=== PATIENT | female | born 1965 | race African-American/Black ===

== ENCOUNTER 2017-02-23 05:34 | Emergency (ER) | payer OTHER ==
[~2017-02-23] VITALS: Ht 167.6 cm; Wt 72.5 kg
[~2017-02-23 05:34] MED LIST: LEVO125T11 PO
[2017-02-23] MEDS ORDERED: SIMV40 PO (05:55)
[2017-02-23] MEDS ORDERED: SIMV20 PO (05:55)
[2017-02-23] MEDS ORDERED: PROPARACAINE HCL 0.5% 15 ML OPHTHALMIC SOLUTION OS ONE (06:30)
[2017-02-23 06:47] VITALS: BP 130/80
== END 2017-02-23 07:04 | disposition home or self-care (01) ==
LOC: EMS 05:34
DX: H57.12 Ocular pain, left eye (principal); E78.00 Pure hypercholesterolemia, unspecified; I34.1 Nonrheumatic mitral (valve) prolapse; Z88.0 Allergy status to penicillin; Z88.1 Allergy status to other antibiotic agents
CPT/HCPCS: 99282; 99283

== ENCOUNTER 2018-01-07 03:28 | Emergency (ER) | payer OTHER ==
[~2018-01-07] VITALS: Ht 167.6 cm; Wt 71.8 kg
[~2018-01-07 03:28] MED LIST changes: +SIMV-261 PO
[2018-01-07] MEDS ORDERED: ASPIRIN 81 MG CHEWABLE TABLET PO ONE (04:45)
[2018-01-07 04:59] LABS: EOSINOPHILS % (AUTO) 2.9 % (1.0-6.0); HEMATOCRIT 35.6 % (36-46); HEMOGLOBIN 11.7 g/dL (12.0-16.0); LYMPHOCYTES # (AUTO) 2.4 K/uL (1.0-4.8); LYMPHOCYTES % (AUTO) 36.6 % (22.0-44.0); MEAN CORPUSCULAR HEMOGLOBIN 24.8 pg (26.0-34.0); MEAN CORPUSCULAR HGB CONC 32.9 G/dL (31.0-37.0); MEAN CORPUSCULAR VOLUME 75 fL (80-100); MONOCYTES # (AUTO) 0.4 K/uL (0.1-1.0); MONOCYTES % (AUTO) 6.6 % (2.0-9.0); NEUTROPHILS # (AUTO) 3.5 K/uL (1.8-7.7); NEUTROPHILS % (AUTO) 52.9 % (40.0-70.0); PLATELET COUNT (AUTO) 237 K/uL (150-450); RED BLOOD CELL COUNT(AUTO) 4.73 MIL/uL (4.00-5.20)
[2018-01-07 05:09] LABS: ANION GAP 8 mmol/L (8-16); CALCIUM, TOTAL 9.1 mg/dL (8.8-10.5); CARBON DIOXIDE 26 mmol/L (22-29); CHLORIDE 105 mmol/L (98-107); CREATININE 0.96 mg/dL (0.60-1.30); GLOMERULAR FILTR. RATE CALC > 60 mL/min (>60); GLUCOSE,RANDOM 82 mg/dL (70-110); POTASSIUM 3.5 mmol/L (3.5-5.1); SODIUM SERUM 139 mmol/L (136-145); UREA NITROGEN, BLOOD 13 mg/dL (7-18)
[2018-01-07 05:12] LABS: B-TYPE NATRIURETIC PEPTIDE 8 pg/mL (0-100)
[2018-01-07 05:34] LABS: ALANINE AMINOTRANSFERASE 25 U/L (12-78); ALBUMIN 3.7 g/dL (3.4-5.0); ALKALINE PHOSPHATASE 59 U/L (46-116); ASPARTATE AMINOTRANSFERASE 20 U/L (15-37); BILIRUBIN,TOTAL 0.3 mg/dL (0.1-1.0); CREATINE KINASE MB 0.7 ng/mL (0-5); CREATINE KINASE, TOTAL 167 U/L (26-192); TOTAL PROTEIN, SERUM 7.5 g/dL (6.4-8.2)
[2018-01-07 08:35] VITALS: BP 136/80
== END 2018-01-07 08:42 | disposition home or self-care (01) ==
LOC: EMS 03:28
DX: R07.89 Other chest pain (principal); R10.13 Epigastric pain; F41.9 Anxiety disorder, unspecified; F17.210 Nicotine dependence, cigarettes, uncomplicated; E78.00 Pure hypercholesterolemia, unspecified; Z87.442 Personal history of urinary calculi; Z88.5 Allergy status to narcotic agent; Z88.0 Allergy status to penicillin
CPT/HCPCS: 93005; 99285

== ENCOUNTER 2019-06-06 06:15 | Emergency (ER) | payer OTHER ==
[~2019-06-06] VITALS: Ht 167.6 cm; Wt 71.8 kg
[~2019-06-06 06:15] MED LIST changes: -SIMV-261 PO
[2019-06-06 07:33] LABS: BASOPHILS % (AUTO) 1.3 % (0.0-2.0); EOSINOPHILS % (AUTO) 7.4 % (1.0-6.0); HEMATOCRIT 36.4 % (36-46); HEMOGLOBIN 11.5 g/dL (12.0-16.0); LYMPHOCYTES # (AUTO) 2.3 K/uL (1.0-4.8); LYMPHOCYTES % (AUTO) 48.7 % (22.0-44.0); MEAN CORPUSCULAR HEMOGLOBIN 24.6 pg (26.0-34.0); MEAN CORPUSCULAR HGB CONC 31.5 G/dL (31.0-37.0); MEAN CORPUSCULAR VOLUME 78 fL (80-100); MONOCYTES # (AUTO) 0.3 K/uL (0.1-1.0); MONOCYTES % (AUTO) 6.6 % (2.0-9.0); NEUTROPHILS # (AUTO) 1.7 K/uL (1.8-7.7); PLATELET COUNT (AUTO) 224 K/uL (150-450); RED BLOOD CELL COUNT(AUTO) 4.66 MIL/uL (4.00-5.20); RED CELL DISTRIBUTION WIDTH 14.7 % (11.5-14.5)
[2019-06-06 07:43] LABS: ANION GAP 9 mmol/L (8-16); CALCIUM, TOTAL 9.1 mg/dL (8.8-10.5); CARBON DIOXIDE 26 mmol/L (22-29); CHLORIDE 105 mmol/L (98-107); CREATININE 1.01 mg/dL (0.60-1.30); GLOMERULAR FILTR. RATE CALC > 60 mL/min (>60); GLUCOSE,RANDOM 91 mg/dL (70-110); POTASSIUM 3.6 mmol/L (3.5-5.1); SODIUM SERUM 140 mmol/L (136-145); UREA NITROGEN, BLOOD 10 mg/dL (7-18)
[2019-06-06] MEDS ORDERED: ONDANSETRON HCL 4 MG/2 ML VIAL IVP ONE (07:45)
[2019-06-06] MEDS ORDERED: MECLIZINE HCL 25 MG TABLET PO ONE (07:45)
[2019-06-06] MEDS ORDERED: ACETAMINOPHEN 500 MG TABLET PO ONE (07:45)
[2019-06-06 07:49] LABS: ALANINE AMINOTRANSFERASE 19 U/L (12-78); ALBUMIN 3.9 g/dL (3.4-5.0); ALKALINE PHOSPHATASE 58 U/L (46-116); ASPARTATE AMINOTRANSFERASE 18 U/L (15-37); BILIRUBIN,TOTAL 0.4 mg/dL (0.1-1.0); LIPASE 77 U/L (73-393); TOTAL PROTEIN, SERUM 7.4 g/dL (6.4-8.2)
[2019-06-06] MEDS ORDERED: ONDANSETRON HCL 4 MG TABLET PO ONE (08:15)
[2019-06-06 09:50] VITALS: BP 137/79
== END 2019-06-06 10:02 | disposition home or self-care (01) ==
LOC: EMS 06:17
DX: R42 Dizziness and giddiness (principal); R11.0 Nausea; E78.00 Pure hypercholesterolemia, unspecified; F17.210 Nicotine dependence, cigarettes, uncomplicated; Z98.890 Other specified postprocedural states; Z98.51 Tubal ligation status; Z79.899 Other long term (current) drug therapy; Z88.0 Allergy status to penicillin; Z88.1 Allergy status to other antibiotic agents
CPT/HCPCS: 36415; 70450; 80053; 83690; 84484; 85025; 93005; 99285; 99406; J2405

== ENCOUNTER 2019-07-22 06:43 | Emergency (ER) | payer OTHER ==
[~2019-07-22] VITALS: Ht 167.6 cm; Wt 71.8 kg
[2019-07-22] MEDS ORDERED: IBUPROFEN 600 MG TABLET PO ONE (09:15)
[2019-07-22 10:15] VITALS: BP 136/89
== END 2019-07-22 10:25 | disposition home or self-care (01) ==
LOC: EMS 06:44
DX: S39.011A Strain of muscle, fascia and tendon of abdomen, initial encounter (principal); E78.00 Pure hypercholesterolemia, unspecified; F17.210 Nicotine dependence, cigarettes, uncomplicated; Z88.0 Allergy status to penicillin; Z88.1 Allergy status to other antibiotic agents; X50.9XXA Other and unspecified overexertion or strenuous movements or postures, initial encounter; Y93.89 Activity, other specified; Y92.89 Other specified places as the place of occurrence of the external cause; Y99.8 Other external cause status
CPT/HCPCS: 73503

== ENCOUNTER 2019-11-18 06:58 | Emergency (ER) | payer OTHER ==
[~2019-11-18] VITALS: Ht 167.6 cm; Wt 71.8 kg
[2019-11-18] MEDS ORDERED: KETOROLAC TROMETHAMINE 30 MG/ML VIAL IM ONE (08:30)
[2019-11-18] MEDS ORDERED: IBUPROFEN 800 MG TABLET PO ONE (08:45)
[2019-11-18 09:35] VITALS: BP 146/84
== END 2019-11-18 09:42 | disposition home or self-care (01) ==
LOC: EMS 06:58
DX: M54.32 Sciatica, left side (principal); M13.88 Other specified arthritis, other site; E78.00 Pure hypercholesterolemia, unspecified; F17.210 Nicotine dependence, cigarettes, uncomplicated; Z98.890 Other specified postprocedural states; Z98.51 Tubal ligation status; Z88.0 Allergy status to penicillin; Z88.1 Allergy status to other antibiotic agents
CPT/HCPCS: 72100; J1885

== ENCOUNTER 2020-06-15 22:37 | Emergency (ER) | payer SELFPAY ==
[~2020-06-15] VITALS: Ht 167.6 cm; Wt 71.8 kg
[2020-06-15] MEDS ORDERED: SIMV-260 PO (22:58)
[2020-06-15] MEDS ORDERED: LIDOCAINE 5% TRANSDERMAL PATCH TD ONE (23:15)
[2020-06-15] MEDS ORDERED: ACETAMINOPHEN 325 MG TABLET PO ONE (23:15)
[2020-06-16 00:50] VITALS: BP 132/77
[2020-06-16] MEDS ORDERED: IBUPROFEN 400 MG TABLET PO ONE (01:00)
== END 2020-06-16 01:00 | disposition home or self-care (01) ==
LOC: EMS 22:38
DX: M54.2 Cervicalgia (principal); M79.10 Myalgia, unspecified site; E78.00 Pure hypercholesterolemia, unspecified; F17.210 Nicotine dependence, cigarettes, uncomplicated; Z88.0 Allergy status to penicillin; Z88.1 Allergy status to other antibiotic agents; V41.6XXA Car passenger injured in collision with pedal cycle in traffic accident, initial encounter; Y93.89 Activity, other specified; Y92.89 Other specified places as the place of occurrence of the external cause; Y99.8 Other external cause status
CPT/HCPCS: Z7502; Z7610

== ENCOUNTER 2021-02-23 21:11 | Emergency (ER) | payer OTHER ==
[~2021-02-23] VITALS: Ht 167.6 cm; Wt 71.8 kg
[~2021-02-23 21:11] MED LIST changes: +SIMV-260 PO
[2021-02-23 23:59] LABS: APPEARANCE,URINE CLOUDY (CLEAR); BILIRUBIN,URINE NEGATIVE (NEGATIVE); GLUCOSE, URINE (UA) NEGATIVE (NEGATIVE); KETONES,URINE NEGATIVE (NEGATIVE); LEUKOCYTE ESTERASE ,URINE SMALL (NEGATIVE); NITRATE,URINE POSITIVE (NEGATIVE); OCCULT BLOOD,URINE MODERATE (NEGATIVE); PH,URINE 5.5 (5.0-8.0); PROTEIN,URINE NEGATIVE (NEGATIVE)
[2021-02-24 00:16] LABS: BACTERIA,URINE Many /HPF (None Seen); SQUAMOUS EPITHELIAL CELL,UR Few /LPF (None Seen)
[2021-02-24 01:30] VITALS: BP 150/96
[2021-02-24] MEDS ORDERED: NITROFURANTOIN/NITROFURAN MAC 100 MG CAPSULE [MACROBID] PO ONE (01:45)
[2021-02-24] MEDS ORDERED: ACETAMINOPHEN 500 MG TABLET PO ONE (01:45)
[2021-02-24] MEDS ORDERED: IBUPROFEN 800 MG TABLET PO ONE (01:45)
== END 2021-02-24 02:14 | disposition home or self-care (01) ==
LOC: EMS 21:12
DX: N39.0 Urinary tract infection, site not specified (principal); M54.6 Pain in thoracic spine; E78.00 Pure hypercholesterolemia, unspecified; F17.210 Nicotine dependence, cigarettes, uncomplicated; Z88.1 Allergy status to other antibiotic agents; Z88.0 Allergy status to penicillin
CPT/HCPCS: 81001; 87086; 99284; Z7502; Z7610

== ENCOUNTER 2021-05-18 15:45 | Emergency (ER) | payer OTHER ==
[~2021-05-18] VITALS: Ht 170.2 cm; Wt 75.0 kg
[2021-05-18] MEDS ORDERED: CYCLOBENZAPRINE HCL 10 MG TABLET PO ONE (19:30)
[2021-05-18] MEDS ORDERED: IBUPROFEN 600 MG TABLET PO ONE (19:30)
[2021-05-18 20:00] VITALS: BP 152/58
== END 2021-05-18 21:30 | disposition home or self-care (01) ==
LOC: EMS 15:45
DX: G44.209 Tension-type headache, unspecified, not intractable (principal); E78.00 Pure hypercholesterolemia, unspecified; F17.210 Nicotine dependence, cigarettes, uncomplicated; Z98.51 Tubal ligation status; Z88.0 Allergy status to penicillin; Z88.1 Allergy status to other antibiotic agents; Z79.899 Other long term (current) drug therapy
CPT/HCPCS: 70450; 99284

== ENCOUNTER 2021-09-22 01:21 | Emergency (ER) | payer OTHER ==
[~2021-09-22] VITALS: Ht 170.2 cm; Wt 75.0 kg
[2021-09-22 01:23] VITALS: BP 155/86
[2021-09-22] MEDS ORDERED: VIT D PO (01:34)
[2021-09-22] MEDS ORDERED: IBUPROFEN 600 MG TABLET PO ONE (02:15)
== END 2021-09-22 04:10 | disposition home or self-care (01) ==
LOC: EMS 01:22
DX: S93.401A Sprain of unspecified ligament of right ankle, initial encounter (principal); E78.00 Pure hypercholesterolemia, unspecified; F17.210 Nicotine dependence, cigarettes, uncomplicated; Z88.1 Allergy status to other antibiotic agents; Z88.0 Allergy status to penicillin; X50.9XXA Other and unspecified overexertion or strenuous movements or postures, initial encounter; Y93.89 Activity, other specified; Y92.89 Other specified places as the place of occurrence of the external cause; Y99.8 Other external cause status
CPT/HCPCS: 99283

== ENCOUNTER 2022-10-03 08:21 | Emergency (ER) | payer OTHER ==
[~2022-10-03] VITALS: Ht 167.6 cm; Wt 77.3 kg
[~2022-10-03 08:21] MED LIST changes: +VIT D PO
[2022-10-03] MEDS ORDERED: LEVO150 PO (08:55)
[2022-10-03] MEDS ORDERED: ACETAMINOPHEN/CODEINE 300-30 MG TABLET PO ONE (09:45)
[2022-10-03] MEDS ORDERED: KETOROLAC TROMETHAMINE 60 MG/2 ML VIAL IM ONE (09:45)
[2022-10-03] MEDS ORDERED: ACET-2080 PO (10:34)
[2022-10-03] MEDS ORDERED: IBUP-1554 PO (10:34)
[2022-10-03 11:04] VITALS: BP 140/82
== END 2022-10-03 11:07 | disposition home or self-care (01) ==
LOC: EMS 08:21
DX: M25.552 Pain in left hip (principal); M16.12 Unilateral primary osteoarthritis, left hip; L05.91 Pilonidal cyst without abscess; F17.210 Nicotine dependence, cigarettes, uncomplicated; E78.00 Pure hypercholesterolemia, unspecified; Z88.0 Allergy status to penicillin; Z98.51 Tubal ligation status; Z88.1 Allergy status to other antibiotic agents; Z87.442 Personal history of urinary calculi
CPT/HCPCS: 99283; 73503; 96372; J1885

== ENCOUNTER 2022-11-10 00:48 | Emergency (ER) | payer OTHER ==
[~2022-11-10] VITALS: Ht 167.6 cm; Wt 77.3 kg
[~2022-11-10 00:48] MED LIST changes: +ACET-2080 PO; +IBUP-1554 PO; -LEVO125T11 PO; +LEVO150 PO; -VIT D PO
[2022-11-10 01:25] LABS: COVID AG,FIA SOURCE NASAL SWAB
[2022-11-10 01:52] LABS: INFLUENZA TYPE A POSITIVE FOR TYPE A (NEGATIVE)
[2022-11-10 01:56] LABS: INFLUENZA TYPE B Presumptive Positive (NEGATIVE)
[2022-11-10] MEDS ORDERED: ACETAMINOPHEN 325 MG TABLET PO ONE (02:45)
[2022-11-10 03:58] VITALS: BP 172/90
== END 2022-11-10 04:07 | disposition home or self-care (01) ==
LOC: EMS 00:48
DX: J10.1 Influenza due to other identified influenza virus with other respiratory manifestations (principal); E78.00 Pure hypercholesterolemia, unspecified; I10 Essential (primary) hypertension; F17.210 Nicotine dependence, cigarettes, uncomplicated; Z98.51 Tubal ligation status; Z98.890 Other specified postprocedural states; Z88.0 Allergy status to penicillin; Z88.8 Allergy status to other drugs, medicaments and biological substances; Z20.822 Contact with and (suspected) exposure to COVID-19
CPT/HCPCS: 87502; 87804; 93005; 99284

== ENCOUNTER 2023-01-08 11:04 | Emergency (ER) | payer OTHER ==
[~2023-01-08] VITALS: Ht 167.6 cm; Wt 77.3 kg
[2023-01-08] MEDS ORDERED: LEVO150 PO (11:06)
[2023-01-08 11:22] VITALS: BP 145/70
[2023-01-08] MEDS ORDERED: AMLO-257 PO (11:39)
[2023-01-08 11:46] LABS: GLUCOSE,POINT OF CARE 100 MG/DL (70-110)
[2023-01-08 12:46] LABS: BASOPHILS % (AUTO) 0.9 % (0.0-2.0); EOSINOPHILS % (AUTO) 1.8 % (1.0-6.0); HEMOGLOBIN 11.7 g/dL (12.0-16.0); LYMPHOCYTES # (AUTO) 2.5 K/uL (1.0-4.8); LYMPHOCYTES % (AUTO) 40.9 % (22.0-44.0); MEAN CORPUSCULAR HEMOGLOBIN 24.7 pg (26.0-34.0); MEAN CORPUSCULAR HGB CONC 31.5 G/dL (31.0-37.0); MEAN CORPUSCULAR VOLUME 78 fL (80-100); MONOCYTES # (AUTO) 0.4 K/uL (0.1-1.0); MONOCYTES % (AUTO) 7.1 % (2.0-9.0); NEUTROPHILS # (AUTO) 3.1 K/uL (1.8-7.7); NEUTROPHILS % (AUTO) 49.3 % (40.0-70.0); PLATELET COUNT (AUTO) 268 K/uL (150-450); RED BLOOD CELL COUNT(AUTO) 4.73 MIL/uL (4.00-5.20); RED CELL DISTRIBUTION WIDTH 15.6 % (11.5-14.5)
[2023-01-08 12:54] LABS: ANION GAP 7 mmol/L (8-16); CALCIUM, TOTAL 9.3 mg/dL (8.8-10.5); CARBON DIOXIDE 30 mmol/L (22-29); CHLORIDE 107 mmol/L (98-107); CREATININE 0.98 mg/dL (0.60-1.30); GLOMERULAR FILTR. RATE CALC > 60 mL/min (>60); GLUCOSE,RANDOM 91 mg/dL (70-110); POTASSIUM 3.5 mmol/L (3.5-5.1); SODIUM SERUM 144 mmol/L (136-145); UREA NITROGEN, BLOOD 12 mg/dL (7-18)
[2023-01-08 13:00] LABS: ALANINE AMINOTRANSFERASE 16 U/L (12-78); ALKALINE PHOSPHATASE 71 U/L (46-116); ASPARTATE AMINOTRANSFERASE 21 U/L (15-37); BILIRUBIN,TOTAL 0.4 mg/dL (0.1-1.0); TOTAL PROTEIN, SERUM 7.9 g/dL (6.4-8.2)
== END 2023-01-08 13:56 | disposition home or self-care (01) ==
LOC: EMS 11:06
DX: I10 Essential (primary) hypertension (principal); R42 Dizziness and giddiness; E78.00 Pure hypercholesterolemia, unspecified; F17.210 Nicotine dependence, cigarettes, uncomplicated; Z98.51 Tubal ligation status; Z88.0 Allergy status to penicillin; Z88.8 Allergy status to other drugs, medicaments and biological substances
CPT/HCPCS: 71045; 80053; 82962; 84484; 85025; 93005; 99283; 36415-L1; 36415-TC

== ENCOUNTER 2023-08-03 11:07 | Emergency (ER) | payer OTHER ==
[~2023-08-03] VITALS: Ht 162.6 cm; Wt 68.2 kg
[~2023-08-03 11:07] MED LIST changes: -ACET-2080 PO; +AMLO-257 PO; -IBUP-1554 PO; -SIMV-260 PO
[2023-08-03 11:08] VITALS: TEMP 98
[2023-08-03 11:23] VITALS: BP 150/80; PULSE 88; RESP 18
== END 2023-08-03 13:31 | disposition left against medical advice (07) ==
LOC: EMS 11:13
DX: S96.912A Strain of unspecified muscle and tendon at ankle and foot level, left foot, initial encounter (principal); M79.662 Pain in left lower leg; E78.00 Pure hypercholesterolemia, unspecified; I10 Essential (primary) hypertension; F17.210 Nicotine dependence, cigarettes, uncomplicated; Z98.51 Tubal ligation status; Z98.890 Other specified postprocedural states; Z88.0 Allergy status to penicillin; Z88.8 Allergy status to other drugs, medicaments and biological substances; X58.XXXA Exposure to other specified factors, initial encounter; Y93.79 Activity, other specified sports and athletics; Y92.89 Other specified places as the place of occurrence of the external cause; Y99.8 Other external cause status
CPT/HCPCS: 99281; Z7502

== ENCOUNTER 2023-09-04 02:29 | Emergency (ER) | payer OTHER ==
[~2023-09-04] VITALS: Ht 167.6 cm; Wt 82.0 kg
[2023-09-04] MEDS ORDERED: DiphenhydrAMINE HCL 25 MG CAPSULE PO ONE (03:00)
[2023-09-04 03:02] VITALS: BP 150/76; PULSE 78; RESP 18; TEMP 98.2
[2023-09-04] MEDS ORDERED: DIPH25CA53 PO (03:06)
[2023-09-04] MEDS ORDERED: PRED-554 PO (03:06)
== END 2023-09-04 03:15 | disposition home or self-care (01) ==
LOC: EMS 02:31
DX: L29.9 Pruritus, unspecified (principal); E78.00 Pure hypercholesterolemia, unspecified; I10 Essential (primary) hypertension; I34.1 Nonrheumatic mitral (valve) prolapse; Z87.442 Personal history of urinary calculi; F17.210 Nicotine dependence, cigarettes, uncomplicated; Z98.51 Tubal ligation status; Z88.0 Allergy status to penicillin
CPT/HCPCS: 99283

== ENCOUNTER 2023-11-22 08:12 | Emergency (ER) | payer OTHER ==
[~2023-11-22] VITALS: Ht 167.6 cm; Wt 70.5 kg
[~2023-11-22 08:12] MED LIST changes: +DIPH25CA53 PO; +PRED-554 PO
[2023-11-22 08:16] VITALS: BP 149/81; PULSE 78; RESP 18; TEMP 97.9
[2023-11-22] MEDS ORDERED: ATOR40TA28 PO (08:17)
== END 2023-11-22 15:51 | disposition left against medical advice (07) ==
LOC: EMS 08:16
DX: G43.909 Migraine, unspecified, not intractable, without status migrainosus (principal); E78.00 Pure hypercholesterolemia, unspecified; I10 Essential (primary) hypertension; F17.210 Nicotine dependence, cigarettes, uncomplicated; Z98.51 Tubal ligation status; Z98.890 Other specified postprocedural states; Z88.0 Allergy status to penicillin; Z88.8 Allergy status to other drugs, medicaments and biological substances
CPT/HCPCS: 99281; Z7502

== ENCOUNTER 2024-03-07 08:27 | Emergency (ER) | payer OTHER ==
[~2024-03-07] VITALS: Ht 167.6 cm; Wt 76.4 kg
[~2024-03-07 08:27] MED LIST changes: +ATOR40TA28 PO; -DIPH25CA53 PO; -PRED-554 PO
[2024-03-07 08:31] VITALS: BP 142/121; PULSE 79; RESP 12; TEMP 98.2
[2024-03-07] MEDS ORDERED: AMLO10TA55 PO (08:38)
[2024-03-07] MEDS ORDERED: IBUP-1554 PO (10:13)
[2024-03-07] MEDS ORDERED: ACET-66 PO (10:13)
== END 2024-03-07 10:21 | disposition home or self-care (01) ==
LOC: EMS 08:27
DX: S63.602A Unspecified sprain of left thumb, initial encounter (principal); E78.00 Pure hypercholesterolemia, unspecified; I10 Essential (primary) hypertension; F17.210 Nicotine dependence, cigarettes, uncomplicated; Z98.51 Tubal ligation status; Z98.890 Other specified postprocedural states; Z88.0 Allergy status to penicillin; Z88.8 Allergy status to other drugs, medicaments and biological substances; X58.XXXA Exposure to other specified factors, initial encounter; Y93.89 Activity, other specified; Y92.89 Other specified places as the place of occurrence of the external cause; Y99.8 Other external cause status
CPT/HCPCS: 99284; 73110-TC; 73130-TC; Z7502